=== PATIENT | female | born 1980 | race Caucasian/White ===

== ENCOUNTER → 2020-12-06 | Outpatient (CLI) | payer OTHER, MEDICAID ==
[~2020-12-06] MED LIST: ACETAMINOPHEN325 M1 PO; AUGMENTIN 875875 M1; BENTYL 20 MG TA20 M1 PO; COMPAZINE10 MG PO; DIFLUCAN150 MG PO; IRON325 PO; IUD; MULTIVITAMINS1 EAC7 PO; NEXIUM40 MG PO; NORCO 5-325 TA1 EACH PO; PEPCID40 MG PO; PHENERGAN 25 MG25 M1 PO; VICODIN; VICODIN 5-5001 EACH; VICODIN 5-5001 EACH PO; ZANTAC 150MG T150 M1 PO; ZOFRAN ODT4 MG PO
[2020-12-06 11:02] LABS: HEMATOCRIT 31.7 % (37.0-47.0); MCH 22.7 pg (26.0-34.0); MCHC 31.4 g/dL (28.0-37.0); MCV 72.2 fL (80.0-100.0); MPV 8.2 fl. (7.2-11.1); RBC 4.39 mil/uL (4.20-5.00); RDW-CV 20.6 % (10.5-14.5); WBC 5.8 thou/uL (4.0-11.0)
[2020-12-06 11:17] LABS: ALBUMIN 3.4 g/dL (3.4-5.0); CALCIUM 8.5 mg/dL (8.5-10.1); CREATININE 0.6 mg/dL (0.6-1.3); TOTAL BILIRUBIN 0.1 mg/dL (<0.1-1.0); TOTAL PROTEIN 7.2 g/dL (6.4-8.2)
== END ==
LOC: M.ULTRA 09:51
PROVIDERS: ATTEND Nurse Practitioner Family
DX: R16.1 Splenomegaly, not elsewhere classified (principal); Z90.49 Acquired absence of other specified parts of digestive tract

== ENCOUNTER → 2020-12-27 | Outpatient (CLI) | payer OTHER, MEDICAID | LOC: M.RAD 08:08 → M.MRI 08:30 → EEVIPCON 08:30 | PROVIDERS: ATTEND Nurse Practitioner Family | DX: K83.8 Other specified diseases of biliary tract (principal); K76.89 Other specified diseases of liver; R10.11 Right upper quadrant pain; Z87.19 Personal history of other diseases of the digestive system ==